=== PATIENT | female | born 2000 | race Caucasian/White ===

== ENCOUNTER 2022-05-30 17:44 | Emergency (ER) | payer OTHER, SELFPAY ==
[2022-05-30 17:49] VITALS: BP 109/71; PULSE 105; RESP 20; TEMP 36.7; O2SAT 99; BMI 22.0
== END 2022-05-30 18:33 | disposition left against medical advice (07) ==
LOC: ED 19:06
PROVIDERS: PCP Pediatrics
DX: Z53.21 Procedure and treatment not carried out due to patient leaving prior to being seen by health care provider (principal)